=== PATIENT | female | born 1985 ===

== ENCOUNTER 2021-06-02 06:00 | Day surgery (SDC) | payer OTHER ==
[~2021-06-02 06:00] MED LIST: ESTRAD PO; VITAMIN C PO; VITAMIN D PO; VITAMIN D310 MCG/1 M PO
== END 2021-06-02 14:05 | disposition home or self-care (01) ==
LOC: CIR.AMB 06:00
PROVIDERS: ATTEND Specialist
DX: D24.1 Benign neoplasm of right breast (principal); Z20.822 Contact with and (suspected) exposure to COVID-19